=== PATIENT | female | born 2000 ===

== ENCOUNTER 2023-09-29 17:37 | Emergency (ER) | payer BC, SELFPAY ==
--- NOTE | ~2023-09-29 | CT_ITS ---
EXAMINATION: CT HEAD WITHOUT CONTRAST CLINICAL INFORMATION: Headache. Visual changes. COMPARISON: None available. TECHNIQUE: Contiguous axial imaging was performed from the skull base to vertex without intravenous administration of contrast. This CT examination was performed using dose optimization techniques as appropriate, variously including the following: *Automated exposure control *Adjustment of mA and/or kV according to patient size (this includes techniques or standardized protocols for targeted exams where dose is matched to indication/reason for exam; i.e. extremities or head) *Use of iterative reconstruction technique DLP: 657 mGy-cm FINDINGS: The lateral, third and fourth ventricles are normally outlined. The cortical sulci and basal cisterns are normally outlined as well. There is no acute territorial defect, hemorrhage or midline shift. The extra-axial spaces are unremarkable. Calvarium: Intact. Maxillofacial sinuses and mastoids: Clear as visualized. CT/CT head/brain wo IV con IMPRESSION: No acute intracranial abnormality.
--- NOTE | 2023-09-29 17:44 | ED_ITS ---
HPI - General Adult General Chief complaint: Neuro Symptoms/Deficit Stated complaint: R arm numbness, blurry vision, difficulty speaking Related Data Allergies Allergy/AdvReac Type Severity Reaction Status Date / Time No Known Allergies Allergy Verified 09/29/23 17:52 [facility] Social History Social History Advance Directives: No Advance Directives Information Provided: No Physical Exam ED Vital Signs: Vital Signs - 24 hr 09/29/23 17:45 Temperature 98.5 F Pulse Rate 78 Respiratory Rate 18 Blood Pressure 128/75 Pulse Oximetry 100 Oxygen Delivery Method Room Air BMI result Body Mass Index 23.8 NIH Stroke Scale Internal: Initial- Upon Arrival Time: 17:53 Level of Consciousness: Alert Level of Consciousness Questions: Answers both questions correctly Level of Consciousness Commands: Performs both tasks correctly Best Gaze: Normal Visual: No visual loss Facial Palsy: Normal Motor Arm (Right): No drift Motor Arm (Left): No drift Motor Leg (Right): No drift Motor Leg (Left): No drift Limb Ataxia: Absent Sensory: Normal Best Language: No aphasia Dysarthia: Normal Extinction and Inattention: No abnormality Score: 0 Course Course Course Narrative: This is a rapid medical exam: Additional HPI, ROS, PE not included below will be deferred to primary provider. Patient is a 22-year-old female with no past medical history presenting to the emergency department with complaint of severe headache, right arm tingling, and feels as though she is having difficulty speaking and understanding what she is reading, changes to right lateral visual field in both eyes. States that she was reading a sign in the waiting room and understood all the words but was unable to speak them out loud. States symptoms began at 15:30 today. Patient is speaking clearly in triage. Rates headache at 5/10, denies worst at onset. NIHSS in trige 0. Not on OCPs. Denies recent vaccinations. Reports mother has history of ocular migraines and she had one migraine at age 11. Case discussed with Dr. Ram who evaluated patient in triage, does not feel patient requires stroke activation at this time. Plan: CT head Reevaluation(s) Reevaluation #1: I saw patient in triage with PA NIH 0 no deficits, no OCP use, hx of ocular migraine x 1 and mom has hx of migraines. She has no deficits would not be a candidate for TNK. No visual field deficits, normal speech, no ataxia. Has L sided headache. Discussed plain read for mass/ICH though low suspicion suspect t his is likely migraine. - [place] Discharge Plan Discharge Clinical Impression: Acute headache Patient Disposition: Left W/O Completing Treatment Discharge Date/Time: 09/29/23 19:15
[2023-09-29 17:45] VITALS: BP 128/75; PULSE 78; RESP 18; TEMP 36.9; O2SAT 100; BMI 23.8
--- OUTSIDE RECORDS SUMMARY | 2023-09-29 19:30 | XMS_ITS | Continuity of Care Document ---
Author Name Unknown Organization [facility] Rob lt Address [address] [place] [address]- Care Team Providers Care Final Assembly Worker Name Role Phone Jocelynn HORTON, Stiven Cordova Primary Care Physician [phone] Encounter [facility] Date(s): 01/15/20 - 01/22/20 [facility] Adult [address] [place] [address]- [facility] Encounter Diagnosis Concussion(Discharge Diagnosis) - 01/15/20 Attending Physician: Kerry Woo NP Referring Physician: Sania HORTON, Clive Mccartney Medications No Known Medications Problem List Condition Effective Dates Status Health Status Inform ant Allergic rhinitis(Confirmed) Active History of asthma(Confirmed) Active Vegan(Confirmed) Active Diagnosis Diagnosis Type Effective Dates Health Status Clini king Service Informant Concussion Discharge Diagnosis 01/15/20 Social History Social History Type Response Smoking Status Never (less than 100 in lifetime) entered on: 10/26/19 Sex
--- OUTSIDE RECORDS SUMMARY | 2023-09-29 19:30 | XMS_ITS | Continuity of Care Document ---
Author Name Unknown Organization [facility] Rob lt Address [address] [place] [address]- Care Team Providers Care Gear Generator Set Up Operator Name Role Phone Jocelynn HORTON, Stiven Cordova Primary Care Physician Encounter [facility] Date(s): 10/26/19 - 11/05/19 [facility] Adult [address] [place] [address] Attending Physician: Shameka Worrell Admitting Physician: Shameka Worrell Referring Physician: Shameka Worrell Problem List Condition Effective Dates Status Health Status Inform ant Allergic rhinitis(Confirmed) Active History of asthma(Confirmed) Active Vegan(Confirmed) Active Social History Social History Type Response Smoking Status Never (less than 100 in lifetime) entered on: 10/26/19 Sex
--- OUTSIDE RECORDS SUMMARY | 2023-09-29 19:30 | XMS_ITS | Continuity of Care Document ---
Author Name Unknown Organization [facility] Rob lt Address [address] [place] [address]- Care Team Providers Care Can Patcher Name Role Phone Jocelynn HORTON, Stiven Cordova Primary Care Physician Encounter [facility] Date(s): 06/10/20 - 07/10/20 [facility] Adult [address] [place] [address]- [facility] Problem List Condition Effective Dates Status Health Status Inform ant Allergic rhinitis(Confirmed) Active History of asthma(Confirmed) Active Vegan(Confirmed) Active Social History Social History Type Response Smoking Status Never (less than 100 in lifetime) entered on: 10/26/19 Sex
--- OUTSIDE RECORDS SUMMARY | 2023-09-29 19:30 | XMS_ITS | Continuity of Care Document ---
Author Name Unknown Organization [facility] Rob lt Address [address] [place] [address]- Care Team Providers Care Gang Leader Name Role Phone Stiven Cabezas MD Primary Care Physician [phone] Encounter [facility] Date(s): 01/23/20 - 02/02/20 [facility] Adult [address] [place] [address]- [facility] Attending Physician: Shameka Worrell Admitting Physician: Shameka Worrell Referring Physician: Admtr ArPreet Problem List Condition Effective Dates Status Health Status Inform ant Allergic rhinitis(Confirmed) Active History of asthma(Confirmed) Active Vegan(Confirmed) Active Social History Social History Type Response Smoking Status Never (less than 100 in lifetime) entered on: 10/26/19 Sex
--- OUTSIDE RECORDS SUMMARY | 2023-09-29 19:30 | XMS_ITS | Continuity of Care Document ---
Author Name Unknown Organization [facility] ter Address [address] [place] [address]- Care Team Providers Care Circular Shear Operator Name Role Phone Jocelynn HORTON, Stiven Cordova Primary Care Physician [phone] Encounter [facility] Date(s): 10/26/19 - 10/26/[address] [address]- [facility] Attending Physician: Not on Staff, Attending MD Problem List Condition Effective Dates Status Health Status Inform ant Allergic rhinitis(Confirmed) Active History of asthma(Confirmed) Active Vegan(Confirmed) Active Social History Social History Type Response Smoking Status Never (less than 100 in lifetime) entered on: 10/26/19 Sex
--- OUTSIDE RECORDS SUMMARY | 2023-09-29 19:30 | XMS_ITS | Continuity of Care Document ---
Author Name Unknown Organization [facility] Rob lt Address [address] [place] [address]- Care Team Providers Care Building Stonecutter Name Role Phone Jocelynn HORTON, Stiven Cordova Primary Care Physician [phone] Encounter [facility] Date(s): 01/15/20 - 02/14/20 [facility] Adult [address] [place] [address]- [facility] Attending Physician: Not on Staff, Attending MD Problem List Condition Effective Dates Status Health Status Inform ant Allergic rhinitis(Confirmed) Active History of asthma(Confirmed) Active Vegan(Confirmed) Active Social History Social History Type Response Smoking Status Never (less than 100 in lifetime) entered on: 10/26/19 Sex
--- OUTSIDE RECORDS SUMMARY | 2023-09-29 19:30 | XMS_ITS | Continuity of Care Document ---
Author Name Unknown Organization [facility] Rob lt Address [address] [place] [address]- Care Team Providers Care Data Warehousing Specialist Name Role Phone Jocelynn HORTON, Stiven Cordova Primary Care Physician Encounter [facility] Date(s): 05/19/20 - 06/18/20 [facility] Adult [address] [place] [address]- [facility] Problem List Condition Effective Dates Status Health Status Inform ant Allergic rhinitis(Confirmed) Active History of asthma(Confirmed) Active Vegan(Confirmed) Active Social History Social History Type Response Smoking Status Never (less than 100 in lifetime) entered on: 10/26/19 Sex
--- OUTSIDE RECORDS SUMMARY | 2023-09-29 19:30 | XMS_ITS | Continuity of Care Document ---
Author Name Unknown Organization [facility] Rob lt Address [address] [place] [address]- Care Team Providers Care Community Health Nursing Director Name Role Phone Jocelynn HORTON, Stiven Cordova Primary Care Physician Encounter [facility] Date(s): 05/15/20 - 05/22/20 [facility] Adult [address] [place] [address]- [facility] Attending Physician: Roland Azevedo MD Problem List Condition Effective Dates Status Health Status Inform ant Allergic rhinitis(Confirmed) Active History of asthma(Confirmed) Active Vegan(Confirmed) Active Social History Social History Type Response Smoking Status Never (less than 100 in lifetime) entered on: 10/26/19 Sex
--- OUTSIDE RECORDS SUMMARY | 2023-09-29 19:30 | XMS_ITS | Continuity of Care Document ---
Author Name Unknown Organization [facility] Rob lt Address [address] [place] [address]- Care Team Providers Care Shingle Shearing Machine Operator Name Role Phone Jocelynn HORTON, Stiven Cordova Primary Care Physician [facility]counter [facility] Date(s): 10/26/19 - 11/02/19 [facility] Adult [address] [place] [address]- [facility] Attending Physician: Not on Staff, Attending MD Problem List Condition Effective Dates Status Health Status Inform ant Allergic rhinitis(Confirmed) Active History of asthma(Confirmed) Active Vegan(Confirmed) Active Vital Signs Most recent to oldest [Reference Range]: 1 Height 168 cm (10/26/19 12:54 PM) Weight 68.2 kg (10/26/19 12:54 PM) Oxygen Saturation [94-100 %] 98 % (10/26/19 12:54 PM) Pulse Rate [55-90 bpm] 64 bpm (10/26/19 12:54 PM) Body Mass Index [18.5-24.99] 24.16 (10/26/19 12:54 PM) Blood Pressure [90-138/55-84 mm Hg] 102/ 62mm Hg (10/26/19 12:54 PM) Blood pressure sites Arm, left (10/26/19 12:54 PM) Social History Social History Type Response Smoking Status Never (less than 100 in lifetime) entered on: 10/26/19 Sex
--- OUTSIDE RECORDS SUMMARY | 2023-09-29 19:30 | XMS_ITS | Continuity of Care Document ---
Author Name Unknown Organization [facility] Rob lt Address [address] [place] [address]- Care Team Providers Care Supervisor Electronics Processing Name Role Phone Jocelynn HORTON, Stiven Cordova Primary Care Physician Encounter [facility] Date(s): 01/23/20 - 01/30/20 [facility] Adult [address] [place] [address]- [facility] Encounter Diagnosis Concussion without loss of consciousness, subsequent encounter(Discharge Diagnosis) - 01/23/20 Attending Physician: Amna CLINIC SUPERVISOR, Kerry Problem List Condition Effective Dates Status Health Status Inform ant Allergic rhinitis(Confirmed) Active History of asthma(Confirmed) Active Vegan(Confirmed) Active Diagnosis Diagnosis Type Effective Dates Health Status Clinical Service Informant Concussion without loss of consciousness, subsequent encounter Discharge Diagnosis 01/23/20 Social History Social History Type Response Smoking Status Never (less than 100 in lifetime) entered on: 10/26/19 Sex
--- OUTSIDE RECORDS SUMMARY | 2023-09-29 19:30 | XMS_ITS | Continuity of Care Document ---
Author Name Unknown Organization [facility] Rob lt Address [address] [place] [address]- Care Team Providers Care Shuttler Name Role Phone Jocelynn HORTON, Stiven Cordova Primary Care Physician [phone] Encounter [facility] Date(s): 05/15/20 - 06/14/20 [facility] Adult [address] [place] [address]- [facility] Attending Physician: Shameka Worrell Admitting Physician: Shameka Worrell Referring Physician: Shameka Worrell Problem List Condition Effective Dates Status Health Status Inform ant Allergic rhinitis(Confirmed) Active History of asthma(Confirmed) Active Vegan(Confirmed) Active Social History Social History Type Response Smoking Status Never (less than 100 in lifetime) entered on: 10/26/19 Sex
--- OUTSIDE RECORDS SUMMARY | 2023-09-29 19:30 | XMS_ITS | Continuity of Care Document ---
Author Name Unknown Organization [facility] Rob lt Address [address] [place] [address]- Care Team Providers Care Aluminum Container Tester Name Role Phone Jocelynn HORTON, Stiven Cordova Primary Care Physician Encounter [facility] Date(s): 05/15/20 - 06/14/20 [facility] Adult [address] [place] [address]- [facility] Problem List Condition Effective Dates Status Health Status Inform ant Allergic rhinitis(Confirmed) Active History of asthma(Confirmed) Active Vegan(Confirmed) Active Social History Social History Type Response Smoking Status Never (less than 100 in lifetime) entered on: 10/26/19 Sex
== END 2023-09-29 19:15 | disposition left against medical advice (07) ==
PROVIDERS: Emergency Provider Emergency Medicine; PCP Internal Medicine
DX: R51.9 Headache, unspecified (principal); H53.8 Other visual disturbances; R20.0 Anesthesia of skin
CPT/HCPCS: 70450; 99281; 99284